=== PATIENT | female | born 1990 | race Caucasian/White ===

== ENCOUNTER 2024-06-16 11:21 | Emergency (ER) | payer BC, SELFPAY ==
[2024-06-16 11:23] VITALS: BP 167/109; BMI 45.8
[2024-06-16 12:18] LABS: % Basophils 0.2 % (0-2); % Eosinophils 0.2 % (0-6); % Immature Granulocytes 0.5 % (0-0.5); % Lymphocytes 9.4 % (20.5-51.1); % Monocytes 5.6 % (1.7-9.3); % Neutrophils 84.1 % (42.2-75.2); Absolute Immature Granulocytes 0.1 10^3/uL (0-0.05); Absolute Lymphocytes 1.9 10^3/uL (1.2-3.4); Absolute Monocytes 1.1 10^3/uL (0.1-0.6); Absolute Neutrophils 16.7 10^3/uL (1.4-6.5); Hematocrit 43.4 % (37.0-47.0); Hemoglobin 15.2 g/dL (12.0-16.0); Mean Corpuscular Hgb 30.4 pg (27.0-31.0); Mean Corpuscular Volume 86.8 fL (81.0-99.0); Mean Platelet Volume 9.6 fL (7.4-10.4); Nucleated Red Blood Cells % 0 %; Platelet Count 441 10^3/uL (130-400); Red Cell Dist. Width 12.5 % (11.5-14.5); White Blood Cell Count 19.9 10^3/uL (4.8-10.8)
[2024-06-16 12:23] LABS: HCG, Serum Qualitative Screen Negative
[2024-06-16 12:26] LABS: AST (SGOT) 29 U/L (14-36); Albumin 5.1 g/dl (3.5-5.0); Alkaline Phosphatase 88 U/L (38-126); Blood Urea Nitrogen 13 mg/dl (7-17); Calcium 9.9 mg/dl (8.4-10.2); Carbon Dioxide 25 mmol/L (22-30); Chloride 100 mmol/L (98-107); Estimated Creatinine Clearance 105 ml/min; Glucose 100 mg/dl (70-99); Lipase 96 U/L (23-300); Sodium 138 mmol/L (135-145); Total Bilirubin 0.8 mg/dl (0.2-1.3); Total Protein 7.8 g/dl (6.3-8.2); eGFR > 60.00
[2024-06-16] MEDS: DILAUDID 1 MG IV (12:26)
[2024-06-16] MEDS: ZOFRAN 4 MG IV (12:26)
[2024-06-16] MEDS: NSS 1000 IV (12:27)
[2024-06-16 12:33] LABS: ALT (SGPT) 31 U/L (0-35)
--- NOTE | 2024-06-16 13:59 | ED.GENMED ---
History of Present Illness
General
Chief Complaint: Abdominal Pain
Source: patient and family
Time Seen by Provider: 06/16/24 11:49
History of Present Illness
History of Present Illness:
34-year-old female with past medical history of gastroparesis, anxiety, status post hiatal hernia repair yesterday at [facility] presenting to the emergency department for evaluation of persistent nausea and vomiting as well as increased
upper abdominal pain. Patient was having pain postoperatively but still wanted to go home and declined admission to the hospital yesterday, was given prescription for oxycodone which patient last took around 5 AM but with no relief. She notes
persistent vomiting which is somewhat typical of her gastroparesis. Has not been able to eat or drink anything today. Patient contacted the surgical office and they recommended patient come to the closest emergency department for CT scan
Past History
Past History
ED Past Medical History: GERD and Psychiatric
ED Past Surgical History: Other (Gastric stimulator)
Social History
Tobacco: Smoker
Alcohol: None
Drug: None
Personal: Single
Living: with family
Employment: Employed
Family History
Family History: Other (Noncontributory)
Review of Systems
Review of Systems
All Other Systems: ROS reviewed and negative except as documented in HPI and ROS
Phy Exam
Physical Exam
Physical Exam:
GENERAL: Alert , appears uncomfortable
EYE: clear conjunctiva b/l
HEAD: NCAT
ENT: o/p clr, mmm.
CARDIAC: Regular rate and rhythm .
LUNGS: Clear breath sounds bilaterally, no acute respiratory distress, no wheezes/rales/rhonchi
ABDOMEN: Abdominal binder noted, dressing overlying but without any underlying erythema or drainage
NEUROLOGICAL: Alert and oriented
SKIN: Warm and dry, skin intact.
MUSCULOSKELETAL: well perfused.
PSYCH: Normal and appropriate interaction.
Scores
Heart Failure Risk
Heart Failure Risk Score: Not Applicable
Heart Score for Chest Pain Patients
STEMI patient?: Not applicable
Withdrawal Assessment of Alcohol
Withdrawal Assessment Completed?: Not applicable
Course
Orders/Labs/Results
Orders:
Orders
06/16/24 11:59
IV Insert/Care/Rem.- Treatment PRN
06/16/24 12:00
Test Result ONCE
06/16/24 12:01
Complete Blood Count/With Diff Urgent
Comprehensive Metabolic Panel Urgent
HCG, Serum Qualitative Screen Urgent
Comment: Notify provider if positive test present
Lipase Urgent
06/16/24 12:17
CT Abd/pelvis W Iv Cont Urgent
Comment:
Reason For Exam: s/p hernia repair, severe pain/vomiting
0.9% Sodium Chloride 1000 ml [Nss] 1,000 ml IV BOLUS
HYDROmorphone [Dilaudid] 1 mg IV NOW STA
Ondansetron Injectable [Zofran] 4 mg IV NOW STA
Abnormal Lab Results
06/16/24
12:01
WBC 19.9 H 10^3/uL
(4.8-10.8)
Plt Count 441 H 10^3/uL
(130-400)
Abs Immat Gran (auto) 0.1 H 10^3/uL
(0-0.05)
Absolute Neuts (auto) 16.7 H 10^3/uL
(1.4-6.5)
Absolute Monos (auto) 1.1 H 10^3/uL
(0.1-0.6)
Neutrophils % 84.1 H %
(42.2-75.2)
Lymphocytes % 9.4 L %
(20.5-51.1)
Glucose 100 H mg/dl
(70-99)
Albumin 5.1 H g/dl
(3.5-5.0)
06/16/24 12:01
06/16/24 12:01
Vital Signs
Initial and Last Documented VS:
Initial Vital Signs
Temp Pulse Resp BP Pulse Ox
99.1 F 128 22 167/109 98
06/16/24 11:23 06/16/24 11:23 06/16/24 11:23 06/16/24 11:23 06/16/24 11:23
Last Documented Vital Signs
Temp Pulse Resp BP Pulse Ox
99.1 F 98 11 105/78 91
06/16/24 11:23 06/16/24 16:00 06/16/24 16:00 06/16/24 16:00 06/16/24 16:00
MDM/Problems Addressed
Differential Diagnosis Includes:
Medication side effect, postsurgical pain, I do not have concern for any infectious etiology surgery was less than 24 hours prior to arrival to this emergency department
MDM/Problems Addressed:
34-year-old female presenting to the emergency department for evaluation of abdominal pain status post hernia repair yesterday done at [facility]. Patient with persistent nausea and vomiting as well as pain. Extensive history of
gastroparesis with nausea and vomiting which patient states is likely cause of current symptoms. She notes that she has attempted multiple antinausea medications in the past but without much relief. Will attempt Zofran and Dilaudid for pain
control. IV fluids ordered. CT ordered at request of patient's surgical team.
Chronic conditions affecting care: Other (Chronic gastroparesis)
*Radiology
Radiology exam reviewed: radiology read reviewed
*Pulse Oximetry
Patient hypoxic: no
*Critical Care Note
Total Time (30-74mins, 75-104mins- exclusive of procedures): Not Applicable
Patient Management
Escalation/DeEscalation of care consider admission/obs:
Patients CT consistent with post surgical changes. No vomiting in ED. Leukocytosis on labs noted is likely reactive to surgery as well as vomiting. Patient has pain and nausea meds at home. Follow up with surgeon as directed. Stable for discharge
home and aware of return precautions to ED.
ED Attending Note
-
Portions of this chart may have been created with voice recognition software.� Occasional wrong word or��sound alike� substitutions may have occurred due to the inherent limitations of voice recognition software.
Discharge Plan
Departure
Patient Disposition: Home (Routine Discharge)
Date of Disposition: 06/16/24
Time of Disposition: 16:06
Patient with high blood pressure during this ER visit?: Yes
Discharge Problem:
Postoperative abdominal pain
Instructions: Managing pain after surgery
Prescriptions:
No Action
azithromycin 250 MG tablet
250 mg PO DAILY Qty: 4 0RF
Patient Comments:
been taking for 2 weeks,
omeprazole 40 MG capsule,delayed release(DR/EC)
40 mg PO BID
bupropion HCl 100 MG tablet
100 mg PO DAILY
paroxetine HCl 30 MG tablet
30 mg PO HS
pramipexole 0.25 MG tablet
0.25 mg PO HS
gabapentin 300 MG capsule
300 mg PO TID
nortriptyline 50 MG capsule
50 mg PO BID
buspirone 15 MG tablet
15 mg PO BID
Referrals:
Lorri Hernandez DO [Family Provider] -
Interventions
Interventions:
*Risk Screen - Suicide Last Done: 06/16/24 11:23
*General Assessment Last Done: 06/16/24 12:00
*Neglect/Abuse Screening Last Done: 06/16/24 11:23
ED- Fall Risk Assessment Last Done: 06/16/24 12:00
*ED COVID-19 Vaccine History Last Done: 06/16/24 12:00
*Nursing Disposition Last Done: 06/16/24 16:25
UT-Rpxjnz-Iepldezahs Assessment Last Done: 06/16/24 14:02
Discharge Date and Time
Discharge Date/Time: 06/16/24 16:26
Print Language: ANGUILLAN
--- NOTE | 2024-06-16 14:04 | EDRN ---
Pt waiting to go to ct.
[2024-06-16 14:43] VITALS: BP 113/83
[2024-06-16 15:00] VITALS: BP 101/68
[2024-06-16 16:00] VITALS: BP 105/78
== END 2024-06-16 16:26 | disposition home or self-care (01) ==
LOC: EMR 11:21
PROVIDERS: Physician Assistant Medical; EMERGENCY PHYSICIAN Student in an Organized Health Care Education/Training Program; FAMILY PHYSICIAN Family Medicine
DX: G89.18 Other acute postprocedural pain (principal); R10.9 Unspecified abdominal pain; K31.84 Gastroparesis; F41.9 Anxiety disorder, unspecified; K44.9 Diaphragmatic hernia without obstruction or gangrene; K21.9 Gastro-esophageal reflux disease without esophagitis; F17.200 Nicotine dependence, unspecified, uncomplicated
CPT/HCPCS: 99284; 96374; 96375; 96361; 74177; 80053; 83690; 84703; 85025; Q9967